=== PATIENT | male | born 1940 | race Caucasian/White ===

== ENCOUNTER → 2017-02-21 | Day surgery (SDC) | payer MEDICARE ==
--- NOTE | 2017-02-16 17:12 | PCM.ANEPRE ---
Anesthesia Pre-Op Review Reason for Review: 76 yo for sinus/ethmoid/antrostomy surgery; Severe COPD, afib, pacemaker Anesthesia Recommendations: Proceed with Procedure Additional Comments 76 yo male wiht sever copd, afib on warfarin, pacemaker (DDDR) evaluated in . Reviewed by Dr Smith 11/2016 and appears high risk for cardiac/respiratory complications but optimized for surgery. Note steriods caused hallucinations. Ok to proceed with risk discussion with patient and usual DOS evaluation for COPD/afib, INR ( was 2.0, should be off for 5-7 days by DOS) Chart Reviewed by: Isak Mena MD, MD Feb 16, 2017 17:12
--- NOTE | 2017-02-18 16:08 | PCM.HPANE ---
Patient Data Surgeon Admitting Provider: Attending Provider:Hermelindo Argueta MD Primary Care Physician:Rupinder Grissom MD Other Provider:Tete Artingham Anesthesia Reason for Visit Hypertrophy Of Nasal Turbinates Ht/WT & BMI Height (Feet): 5 Height (Inches): 11 Weight (Kilograms): 99.7 Body Mass Index 30.00 Allergies Coded Allergies: diltiazem (Verified Allergy, Severe, Bradycardia, 02/16/17) flecainide (Verified Allergy, Severe, shortness of breath, 02/16/17) prednisone (Verified Allergy, Severe, Hallucinations, 02/16/17) guaifenesin (Verified Allergy, Mild, 02/16/17) theophylline (Verified Adverse Reaction, Severe, can not sleep, 02/16/17) Past Anesthesia History Anesthesia History: Denies:: Abnormal Airway, Anesthesia Reactions, Difficult Intubation, Malignant Hyperthermia Diabetes History Hx Diabetes?: No MRSA MRSA: No Medications Blood Thinner: Coumadin Last Dose Blood Thinner: Feb 16, 2017 Hypertension Medication: Yes (Coreg) Home Meds Incl Beta Erik: Yes Reported Medications Hydrocodone-Acetaminophen 5-300 mg 1 Each Tablet1 Tablet PO Q4H PRN For Pain Ref 0 02/16/17 Warfarin Sodium 5 Mg Tablet5 Mg PO DAILY 30 Days Ref 0 02/16/17 Torsemide 20 Mg Ezbvxg83 Mg PO DAILY 30 Days Ref 0 02/16/17 Dofetilide (Tikosyn)250 Mcg [id number] Mcg PO BID 02/16/17 Tamsulosin (Flomax)0.4 Mg Capsule0.4 Mg PO DAILY Ref 0 02/16/17 Tiotropium Br/Olodaterol HCl (Stiolto Respimat Inhal [place])2.5 Mcg-2.5 Mcg/ Actuation Mist.inhal4 Gm IH 02/16/17 Simvastatin (Zocor)20 Mg Cmdsgn09 Mg PO HS 30 Days Ref 0 02/16/17 Cyclosporine (Restasis)1 Each Droperette1 Each OCULAR 02/16/17 Potassium Chloride 10 Meq Tab.er.prt10 Meq PO DAILY 30 Days Ref 0 TAKE WITH FOOD 02/16/[address] (Protonix)40 Mg Eabfqx66 Mg PO BID Ref 0 02/16/17 oxyCODONE 5 Mg Tablet5 Mg PO Q4H PRN For Pain Ref 0 02/16/17 Levothyroxine 100 Mcg Bjxpnj679 Mcg PO DAILY For Thyroid Replacement Ref 0 02/16/17 Levalbuterol HCl (Xopenex)1.25 Mg/3 Ml Vial.neb1.25 Mg IH 02/16/17 Clonazepam 1 Mg Tablet1 Mg PO BID PRN For Anxiety Ref 0 02/16/17 Clobetasol Propionate (Temovate)15 Gm Oint...g.15 Gm TP 02/16/17 Carvedilol (Coreg)25 Mg Prdepd85 Mg PO BID Ref 0 02/16/17 Amlodipine 10 Mg Tanmnp06 Mg PO DAILY Ref 0 02/16/17 Allopurinol 300 Mg Xqkhqw132 Mg PO DAILY Ref 0 02/16/17 Albuterol HFA (Proair HFA)8.5 Gm Hfa.aer.ad2 Puffs INHALATION Q4H #1 INHALER 02/16/17 History History of ENT Problems?: Yes HEENT History: Positive for:: Cataracts Sinus Problem Denies:: Abnormal Airway Difficult Intubation Dysphagia Glaucoma Hearing Problem TMJ Denture Type: Full- Upper Full- Lower Teeth Condition: Missing Teeth Hx of Heart Problems?: Yes Cardiovascular History: Positive for:: Atrial Fibrillation (with pacemaker) Coronary Artery Disease Edema Hypertension Irregular Heartbeat Pacemaker Denies:: AICD Abdominal Aortic Aneurism Cardiac Surgery Chest Pain Congestive Heart Failure Heart Murmur Rheumatic Fever Valvular Heart Disease Hx of Respiratory Problem?: Yes Respiratory History: Positive for:: Asthma COPD (mild to moderate) Dyspnea (with moderate exertion) Oxygen Administration (2.5 lpm at night and on occassion used during day) Pneumonia Use of Inhalers / NEBS Denies:: Chest Surgery Cough Emphysema Hemoptysis Pulmonary Embolism Tuberculosis Use of C-PAP Machine Hx Neurologic Problems?: Yes Neurological History: Positive for:: Headaches (over lt eye post cataract surgery) Denies:: Alzheimer's Disease CVA Dementia Dizziness Multiple Sclerosis Parkinson's Disease Seizures TIA Hx of GI Problems?: No Other GI Pertinent History: Barretts esophagus Hx of Problems?: No Genitourinary History: Denies:: HX of Hemodialysis Kidney Stones HX of Peritoneal Dialysis: No Male Hx: Positive for:: Prostate Problems (BPH) Denies:: Scrotal Mass Testicular Surgery Skin History: Positive for:: History Skin Disorders? (skin ca) Denies:: Pressure Ulcers Hx Musculoskeletal Problems?: Yes Musculoskeletal History: Positive for:: Back Injury (lifting injury 2007) Degenerative Joint Joint Replacement (rt. knee) Osteoarthritis Denies:: Fibromyalgia Musculoskeletal Trauma Myasthenia Gravis Rheumatoid Arthritis Systemic Lupus Hx of Psycho/Social Problems?: Yes Psycho Social History: Positive for:: Anxiety Hx Surgeries?: Yes (lung resection, total knee) Other History: Positive for:: Cancer (left lung, skin) Hospitalization (A fib) Thyroid Disease (Hyopthyroid) Denies:: Endocrine Disease History Blood Transfusions: Positive for:: Accept Blood Products? Blood Transfusions Hx Diabetes: No Hx Alcohol Use: NoHx Substance Use: No Stop/Bang S-Snoring: Do You Snore Loudly: No T-Tired: feel tired, fatigued: No O-Obsered: Observed not breath: No P-Blood Pressure: treated: Yes B- Body Mass Index > 35 kg/m2: Yes A- Age over 50: Yes N- Neck Large Circumference: No G- Gender Male: Yes JANELLE Total Score: 4 Risk Assessment Category Category 1A: Patient has history of documented sleep apnea, and HAS NOT received any narcotic, sedative or anesthesia administration during this stay. Category 1B: Patient has history of documented sleep apnea, and HAS received any narcotic , sedative or anesthesia administration during this stay Category 2: Patient has SUSPECTED Obstructive Sleep Apnea, and HAS received any narcotic , sedative or anesthesia administration during this stay. Category 3: Patient has SUSPECTED Obstructive Sleep Apnea and HAS NOT received narcotic, sedative or anesthesia administration during this stay. Category 4: Outpatient in Procedural Areas with known sleep apnea or who screen positive for High Risk via the STOP/BANG questionnaire. Exam Exam General Appearance: Alert, Oriented X3, Cooperative HEENT/AIRWAY: MP 2, Neck Movement (from), Mouth Opening (wnl) Lungs: Clear to Auscultation Heart: Exam Unremarkable Plan Impression Patient chart reviewed, patient interviewed and anesthestic plan with risks, benefits, and alternatives discussed, and informed consent obtained. ASA Physical Status: ASA3 Severe Disease Anesthetic Plan: GA Bene/Risks/Altern/Consents: Yes HP Complete Prior to Induction: Yes Brent Bejarano MD Feb 18, 2017 16:08
[~2017-02-21] VITALS: Ht 180.3 cm; Wt 99.7 kg
[~2017-02-21] MED LIST: ALBU8.5H2 INHALATION; ALLO300T2 PO; AMLO10TA3 PO; Atropine 0.4 mg/mL Inj IVPUSH PRN; CARV25TA PO; CLOB15OI15 TP; CYCL1DRO OCULAR; CeFAZolin 2 Gm/50 mL D5W Duplex Bag IV ONE; CeFAZolin 2 Gm/50 mL D5W IV Premix IV ONE; DOFE0.25 PO; EPHEDrine Sulfate 50 mg/mL Inj IVPUSH PRN; HYDR-3090 PO; HYDROcodone-APAP 5-325 mg Tablet PO ONE; HYDROcodone-APAP 5-325 mg Tablet PO PRN; HYDROcodone-APAP 7.5-325 mg/15 mL 15 mL Solution PO PRN; HYDROmorphone 1 mg/mL Inj IVPUSH PRN; KLO1T PO; LEVA1.253 IH; LEVO100T6 PO; Labetalol 5 mg/mL 4 mL Inj IV PRN; Lactated Ringer's 1,000 ML IV ONE; Lactated Ringer's 1,000 ML IV SCH; Lactated Ringer's 500 ML IV PRN; MetoCLOpramide 5 mg/mL 2 mL Inj IVPUSH PRN; OXYC5TAB72 PO; Ondansetron 2 mg/mL 2 mL Inj IVPUSH PRN; PANT40TA2 PO; POTA10TA38 PO; Phenylephrine 10,000 mCg/mL Inj IVPUSH PRN; Propofol 10,000 mCg/mL 20 mL Inj ONE; SIMV20TA PO; TAMS0.4C98 PO; TIOT4MIS3 IH; TORS20TA3 PO; WARF5TAB7 PO; fentaNYL-PF 50 mCg/mL 2 mL Inj IVPUSH PRN; fentaNYL-PF 50 mCg/mL 2 mL Inj ONE; hydrALAZINE 20 mg/mL Inj IVPUSH PRN
[2017-02-21 09:23] VITALS: BP 150/73; PULSE 60; RESP 20; O2SAT 93
[2017-02-21 09:55] LABS: INR 0.99 ratio
[2017-02-21 12:25] VITALS: BP 141/61; PULSE 60; RESP 11; O2SAT 92
[2017-02-21 12:35] VITALS: BP 146/63; PULSE 60; RESP 14; O2SAT 91
[2017-02-21 12:40] VITALS: BP 149/67; PULSE 60; RESP 15; O2SAT 95
[2017-02-21 13:06] VITALS: BP 163/60; PULSE 60; RESP 17; O2SAT 94
--- NOTE | 2017-02-21 13:13 | PCM.ANEP1 ---
Post Anesthesia PACU Phase 1 Assessment Vital Signs Vital Signs Date Time Temp Pulse Resp B/P Pulse Ox O2 Delivery O2 Flow Rate FiO2 02/21/17 13:06 60 17 163/60 94 Nasal Cannula 2 02/21/17 12:40 60 15 149/67 95 Nasal Cannula 2 02/21/17 12:35 60 14 146/63 91 Room Air 02/21/17 12:25 36.4 60 11 141/61 92 Room Air 02/21/17 09:23 36.5 60 20 150/73 93 Room Air Anesthetic Administered: GA Level of Alertness: Awake, talking ALARCON's with Equal Strength: Yes Pain: No Nausea or Vomiting: No CV Function & Hydration Stable: Yes Airway Device: Lungs: Clear to Auscultation PACU Phase 2 Assessment Complications: No Follow up Care: No Patient Instructions Provided: N/A Brent Bejarano MD Feb 21, 2017 13:13
[2017-02-21 14:20] VITALS: BP 133/74; PULSE 70; RESP 16; O2SAT 98
--- NOTE | 2017-02-21 19:45 | OP ---
[address] [address] OPERATIVE REPORT PATIENT: BENNY ADAMES : 1940 MR#: [id number] ADMIT: 02/21/2017 JOB ID: [id number] DATE OF SURGERY: 02/21/2017 SURGEON: Hermelindo Argueta MD PREOPERATIVE DIAGNOSIS(ES): 1. Chronic pansinusitis. 2. Obstructing nasal turbinate hypertrophy. POSTOPERATIVE DIAGNOSIS(ES): 1. Chronic pansinusitis. 2. Obstructing nasal turbinate hypertrophy. PROCEDURE: 1. Bilateral maxillary, ethmoid and frontal sinusotomies. 2. Submucosal treatment of turbinates. HISTORY AND INDICATIONS: A 76-year-old gentleman with chronic and recurrent acute pansinusitis despite aggressive prolonged medical therapy. Chronic nasal obstruction with turbinate hypertrophy. PROCEDURE AND FINDINGS: The patient taken to the operative room, placed in supine position on the operating table. General endotracheal anesthesia induced. Face prepped ans draped in sterile fashion. The nose was inspected. The inferior turbinates are hypertrophic. They are injected with 2% lidocaine, 1:100,000 epinephrine. The uncinate process and ethmoidal bulla are injected with the same. Nose was packed with Afrin on cotton. After allowing adequate time for local anesthetic effect, the packing is removed. With the 0 degree scope and the up-biting ethmoid instrument and the microdebrider, the uncinate process is taken down on the right side. The maxillary ostium is enlarged anteriorly and inferiorly with the backbiter and microdebrider. The ethmoidal bulla is opened. The anterior and mid ethmoids are dissected up into the nasofrontal recess until the nasofrontal duct is visualized. The posterior ethmoids are entered and opened. Once all areas are adequately opened, a folded Merocel sponge was placed in the middle meatus. The same procedure was carried out on the left side. Findings of moderate inflammatory change in the mid anterior ethmoids and mucopus was obtained from the frontal sinus. Again, once all sinus areas are open, the Merocel pack is placed. The inferior turbinates are then outfractured. A stab incision is made on the tip with the [place] elevator. The turbinate bone is exposed, partially removed with a Leyla. Further submucosal treatment is undertaken with the suction cautery. Patient is awakened and extubated in the operating room and returned to the recovery room in good condition. ESTIMATED BLOOD LOSS: 50 cc. PATHOLOGIC SPECIMENS: None. COMPLICATIONS: None.
== END | disposition home or self-care (01) ==
LOC: SAS 08:47
PROVIDERS: ATTEND Otolaryngology Facial Plastic Surgery
DX: J32.4 Chronic pansinusitis (principal); J34.3 Hypertrophy of nasal turbinates; J32.8 Other chronic sinusitis; J34.89 Other specified disorders of nose and nasal sinuses; J44.9 Chronic obstructive pulmonary disease, unspecified; I10 Essential (primary) hypertension; I48.91 Unspecified atrial fibrillation; I25.10 Atherosclerotic heart disease of native coronary artery without angina pectoris; E78.5 Hyperlipidemia, unspecified; E03.9 Hypothyroidism, unspecified; K22.70 Barrett's esophagus without dysplasia; N40.0 Benign prostatic hyperplasia without lower urinary tract symptoms; J45.909 Unspecified asthma, uncomplicated; M19.90 Unspecified osteoarthritis, unspecified site; Z87.891 Personal history of nicotine dependence; Z85.118 Personal history of other malignant neoplasm of bronchus and lung; Z99.81 Dependence on supplemental oxygen; Z79.01 Long term (current) use of anticoagulants; Z95.0 Presence of cardiac pacemaker; Z96.651 Presence of right artificial knee joint
CPT/HCPCS: 30140; 31255; 31256; 31276; 36415; 85610; J0690; J3010; J7120